=== PATIENT | female | born 1960 | race African-American/Black ===

== ENCOUNTER 2022-04-14 16:20 | Observation (INO) | payer OTHER ==
[2022-04-14] MEDS ORDERED: MECLIZINE HCL 25 MG TABLET (FP) PO ONE (17:43)
[2022-04-14] MEDS ORDERED: MECLIZINE HCL 25 MG TABLET (FP) ONE (17:55)
[2022-04-14 18:32] LABS: BASO % 1.1 % (0-2.0); EOS % 3.3 % (0-4.5); HEMOGLOBIN 12.2 GM/dL (10.7-15.3); LYMPH % 30.6 % (8-40); MCH 25.8 pg (25.7-33.7); MEAN CELL VOLUME 78.2 fl (80-96); MEAN PLT VOLUME 9.1 fl (7.5-11.1); MONO % 5.6 % (3.8-10.2); NEUT % 59.4 % (42.8-82.8); PLATELET COUNT 207 10^3/uL (134-434); RBC 4.73 M/mm3 (3.60-5.2); RDW 13.9 % (11.6-15.6); WHITE BLOOD COUNT 8.3 K/mm3 (4.0-10.0)
[2022-04-14 18:59] LABS: CHLORIDE 104 mmol/L (98-107); SODIUM 140 mmol/L (136-145)
[2022-04-14 19:01] LABS: ALBUMIN 3.4 g/dl (3.4-5.0); ANION GAP 10 MMOL/L (8-16); BLOOD UREA NITROGEN 11.5 mg/dL (7-18); CALCIUM 9.1 mg/dL (8.5-10.1); CO2 26 mmol/L (21-32); GLUCOSE,RANDOM 214 mg/dL (74-106); MAGNESIUM 2.1 mg/dL (1.8-2.4)
[2022-04-14 19:04] LABS: CREATININE 0.7 mg/dL (0.55-1.3); SGOT/AST 19 U/L (15-37); SGPT/ALT 27 U/L (13-61)
[2022-04-14 19:06] LABS: BILIRUBIN,TOTAL 0.2 mg/dL (0.2-1); TOT PROT 7.2 g/dl (6.4-8.2)
[2022-04-14 19:07] LABS: ALK PHOS 86 U/L (45-117)
[2022-04-14 19:08] LABS: INR 1.07 (0.83-1.09); PROTHROMBIN TIME (PATIENT) 12.3 SEC (9.7-13.0)
[2022-04-14] MEDS ORDERED: CAFFEINE PO PRN (23:00)
[2022-04-14] MEDS ORDERED: [UNRECOGNIZED DRUG - OTHER] PO PRN (23:00)
[2022-04-14] MEDS ORDERED: ACETAMINOPHEN PO PRN (23:00)
[2022-04-14] MEDS ORDERED: ASPIRIN PO PRN (23:00)
[2022-04-14] MEDS: INSULIN (LEVEMIR) 100 UNITS/ML UNITS SQ SCH (23:14)
[2022-04-15 00:30] VITALS: BMI 26.9
[2022-04-15] MEDS: INSULIN SLIDING SCALE (NOVOLOG) 1 VIAL SQ SCH ×4 (06:30→21:25)
[2022-04-15 07:04] LABS: EOS % 4.3 % (0-4.5); HEMATOCRIT 36.2 % (32.4-45.2); LYMPH % 42.8 % (8-40); MCH 26.1 pg (25.7-33.7); MCHC 33.1 g/dl (32.0-36.0); MEAN CELL VOLUME 78.7 fl (80-96); MEAN PLT VOLUME 9.3 fl (7.5-11.1); NEUT % 44.9 % (42.8-82.8); PLATELET COUNT 207 10^3/uL (134-434); RDW 14.2 % (11.6-15.6); WHITE BLOOD COUNT 6.6 K/mm3 (4.0-10.0)
[2022-04-15 07:22] LABS: CHLORIDE 108 mmol/L (98-107); SODIUM 143 mmol/L (136-145)
[2022-04-15 07:28] LABS: ALBUMIN 3.3 g/dl (3.4-5.0); ANION GAP 6 MMOL/L (8-16); CALCIUM 8.5 mg/dL (8.5-10.1); CO2 28 mmol/L (21-32); GLUCOSE,RANDOM 165 mg/dL (74-106); MAGNESIUM 2.1 mg/dL (1.8-2.4)
[2022-04-15 07:29] LABS: BLOOD UREA NITROGEN 14.7 mg/dL (7-18)
[2022-04-15 07:31] LABS: CHOLESTEROL 150 mg/dL (50-200); CREATININE 0.7 mg/dL (0.55-1.3); PHOSPHOROUS 4.2 mg/dL (2.5-4.9); SGOT/AST 12 U/L (15-37); SGPT/ALT 24 U/L (13-61)
[2022-04-15 07:32] LABS: TOT PROT 6.9 g/dl (6.4-8.2); TRIGLYCERIDES 160 mg/dL (0-150)
[2022-04-15 07:33] LABS: ALK PHOS 81 U/L (45-117); BILIRUBIN,TOTAL 0.4 mg/dL (0.2-1); LDL CHOLESTEROL (ONLY SJRH) 84 mg/dL (5-100)
[2022-04-15 07:34] LABS: HDL CHOLESTEROL 52 mg/dL (40-60)
[2022-04-15] MEDS: INSULIN (LEVEMIR) 100 UNITS/ML UNITS SQ SCH ×2 (11:00→21:25)
[2022-04-15] MEDS: ENOXAPARIN NA (PORCINE) 40 MG/0.4 ML DISP.SYRIN SQ SCH (12:43)
[2022-04-15] MEDS ORDERED: amLODIPine BESYLATE 2.5 MG TABLET (FP) PO SCH (15:30)
[2022-04-15] MEDS ORDERED: ASPIRIN COATED 81 MG TABLET.EC PO SCH (19:00)
[2022-04-15] MEDS ORDERED: ASPIRIN 325 MG TABLET PO ONE (21:30)
[2022-04-15] MEDS ORDERED: INSULIN SLIDING SCALE (NOVOLOG) 1 VIAL SQ SCH (22:00)
[2022-04-15] MEDS ORDERED: ATORVASTATIN CA 40 MG TABLET (FP) PO SCH (22:00)
[2022-04-16] MEDS: INSULIN SLIDING SCALE (NOVOLOG) 1 VIAL SQ SCH ×3 (07:30→16:49)
[2022-04-16] MEDS: INSULIN (NOVOLOG) ASPART 100 UNITS/ML 10ML VIAL SQ SCH ×3 (07:30→16:49)
[2022-04-16 07:44] LABS: CHLORIDE 105 mmol/L (98-107); SODIUM 140 mmol/L (136-145)
[2022-04-16 07:48] LABS: ANION GAP 6 MMOL/L (8-16); CO2 29 mmol/L (21-32); GLUCOSE,RANDOM 184 mg/dL (74-106)
[2022-04-16 07:50] LABS: CALCIUM 8.8 mg/dL (8.5-10.1)
[2022-04-16 07:51] LABS: BLOOD UREA NITROGEN 11.1 mg/dL (7-18); CREATININE 0.6 mg/dL (0.55-1.3)
[2022-04-16] MEDS: ENOXAPARIN NA (PORCINE) 40 MG/0.4 ML DISP.SYRIN SQ SCH (09:30)
[2022-04-16] MEDS ORDERED: LISINOPRIL 5 MG TABLET PO SCH ×2 (10:00→12:47)
[2022-04-16] MEDS ORDERED: ASPIRIN COATED 81 MG TABLET.EC PO SCH (10:00)
[2022-04-16] MEDS: INSULIN (LEVEMIR) 100 UNITS/ML UNITS SQ SCH (11:30)
[2022-04-16] MEDS ORDERED: LISINOPRIL 5 MG TABLET PO ONE (12:48)
[2022-04-16 14:54] VITALS: BP 143/95; PULSE 91; TEMP 99.1
[2022-04-16 16:40] LABS: PH,URINE 5.5 (5.0-8.0); URINE APPEARANCE CLEAR; URINE BILIRUBIN NEGATIVE (NEGATIVE); URINE COLOR YELLOW; URINE GLUCOSE (UA) NEGATIVE (NEGATIVE); URINE KETONE TRACE (NEGATIVE); URINE LEUK ESTERASE NEGATIVE (NEGATIVE); URINE NITRITE NEGATIVE (NEGATIVE); URINE PROTEIN TRACE (NEGATIVE); URINE UROBILINOGEN 0.2 mg/dL (0.2-1.0)
[2022-04-17] MEDS ORDERED: LISINOPRIL 10 MG TABLET PO SCH (10:00)
== END 2022-04-16 19:24 | disposition home or self-care (01) ==
LOC: JER 16:20 → UNDOADMOB 20:45 → JERBED 20:45 → INTOOBSV 20:45 → JERBED 23:32 → J4W 23:32 → JERBED 04-15 13:12 → J4W 04-15 13:12
PROVIDERS: ADMIT Hospitalist; ATTEND Internal Medicine
PROC: 3E023GC Introduction of Other Therapeutic Substance into Muscle, Percutaneous Approach (ICD-10-PCS; principal; 2022-04-15)
PROC: 3E013VG Introduction of Insulin into Subcutaneous Tissue, Percutaneous Approach (ICD-10-PCS; 2022-04-15)
DX: G51.0 Bell's palsy (principal); E78.5 Hyperlipidemia, unspecified; E11.9 Type 2 diabetes mellitus without complications; G43.909 Migraine, unspecified, not intractable, without status migrainosus; R42 Dizziness and giddiness
CPT/HCPCS: 0241U-QW; 36415; 70450-TC; 71045-TC-FY; 80048; 80053; 80061; 81003; 82533; 82550; 82553; 82962; 83036; 83735; 84100; 84443; 84484; 85025; 85610; 85730; 93005; 93010; 93306-TC; 96372; 99285-25; G0378